=== PATIENT | male | born 1960 | race Caucasian/White ===

== ENCOUNTER → 2023-05-22 | Outpatient (CLI) | payer OTHER ==
--- NOTE | 2023-05-25 20:54 | CT ---
EXAMINATION TYPE: CT urogram wo/w con DATE OF EXAM: 05/22/2023 COMPARISON: None HISTORY: 63-year-old male C67.9 bladder ca TECHNIQUE: Contiguous axial scanning of the abdomen and pelvis performed without and with IV Contrast , patient injected with 100 mL of Isovue 300. Delayed images through the kidneys and bladder were obt ained. Coronal/sagittal reconstructions performed. 3-D reconstructions generated on a dedicated [employer] workstation. CT DLP: 3814.2 mGycm Automated exposure control for dose reduction was used. FINDINGS: The heart is normal size without pericardial effusion. Lung bases clear without pleural effusion. There is a small hiatal hernia present. Liver enlarged at 20.1 cm with diminished attenuation of the hepatic parenchyma. No focal liver lesio n or biliary ductal dilatation. Portal venous system is patent. Gallbladder, adrenal glands, spleen, and pancreas within normal limits. Kidneys show no nephrolithiasis or hydronephrosis. There is symmetric uptake and excretion of contras t from both kidneys. There is a too small to characterize 6 mm hypodensity lower pole right kidney, probably a small cyst. Otherwise, no suspicious renal lesion is seen. No abnormal defect within the renal collecting system. There is satisfactory enhancement along the bilateral ureters. There is irregularity and thickening along the posterior bladder wall and some polypoid mural based n odularity that is partially calcified along the right posterior bladder dome. This measures at least 1.7 cm. Prostate gland mildly enlarged at 4.5 cm wide. Numerous pelvic phlebolith are present. No dilated small bowel, free fluid, or free air. No mesenteric or retroperitoneal lymphadenopathy. Normal appendix. There is mild stool burden. No pericolonic inflammatory change. Bones: Accentuated lower lumbar lordosis. Moderate to advanced degenerative disc disease L-1-L2 and m oderate at T12-L1. There is left-sided L1 pars interarticularis defect incidentally noted. IMPRESSION: 1. IRREGULARITY AND THICKENING ALONG THE POSTERIOR BLADDER WALL AND SOME PARTIALLY CALCIFIED POLYPOID MURAL BASED NODULARITY ALONG THE RIGHT POSTERIOR BLADDER DOME MEASURING AT LEAST 1.7 CM. FINDINGS LI SERINA REFLECT THE PATIENT'S REPORTED BLADDER CARCINOMA. 2. No nephrolithiasis or hydronephrosis. No suspicious renal mass or collecting system/ureteral lesio n identified. 3. Incidental: Small hiatal hernia, hepatomegaly with hepatic steatosis. Moderate to advanced degener ative disc disease L-1-L2 with left L1 pars defect.
== END | disposition home or self-care (01) ==
LOC: RADCTMAIN 09:44
PROVIDERS: ATTEND Urology
DX: C67.9 Malignant neoplasm of bladder, unspecified (principal); M51.36 Other intervertebral disc degeneration, lumbar region; R31.0 Gross hematuria
CPT/HCPCS: 74178; 74400; Q9967